=== PATIENT | male | born 1990 | race Two or more races ===

== ENCOUNTER 2019-06-06 00:44 | Inpatient (IN) | payer MEDICAID ==
[~2019-06-06] VITALS: Ht 170.2 cm; Wt 69.8 kg
[2019-06-06] VITALS (18 sets, daily range): BP systolic 88–144; BP diastolic 50–91
[2019-06-06] MEDS ORDERED: ACTIVATED CHARCOAL 50 GM/240 ML SOL ONE (00:49)
[2019-06-06 01:09] LABS: Sodium 137 mmol/L (136-145)
[2019-06-06 01:10] LABS: Alanine Aminotransferase 40 U/L (16-61); Albumin 3.6 g/dL (3.4-5.0); Alkaline Phosphatase 83 U/L (45-117); Anion Gap 9 (5-15); Aspartate Aminotransferase 38 U/L (15-37); Bilirubin, Total 0.5 mg/dL (0.2-1.0); Blood Urea Nitrogen 19 mg/dL (7-18); Calcium 8.2 mg/dL (8.5-10.1); Carbon Dioxide 26 mmol/L (21-32); Chloride 102 mmol/L (98-107); GFR African American 120 mL/min; GFR Non-African American 99 mL/min; Glucose 109 mg/dL (74-106); Magnesium 2.6 mg/dL (1.6-2.6); Potassium 3.6 mmol/L (3.5-5.1)
[2019-06-06 01:11] LABS: Blood Alcohol < 3.0 mg/dL (0-5)
[2019-06-06 01:38] LABS: Basophils # (auto) 0.7 uL; Eosinophils # (auto) 0.4 uL; Eosinophils % (auto) 4.1 % (0.0-7.0); Hematocrit 39.3 % (41.0-53.0); Hemoglobin 13.7 g/dL (13.5-17.5); Lymphocytes # (auto) 1.5 uL; Lymphocytes % (auto) 16.7 % (10.0-50.0); Mean Corpuscular Hemoglobin 31.5 pg (28.0-32.0); Mean Corpuscular Hgb Conc. 34.9 g/dL (32.0-36.0); Mean Corpuscular Volume 90.3 fL (80.0-100.0); Monocytes # (auto) 0.2 uL; Neutrophils # (auto) 6.1 uL; Neutrophils % (auto) 69.2 % (37.0-80.0); Nucleated Red Blood Cells % 0.3 %; Platelet Count (auto) 301 10^3/uL (140-450); Red Blood Cells 4.35 10^6/uL (4.5-5.90); Red Cell Distribution Width 14.1 % (11.8-14.3); White Blood Cell 8.8 10^3/uL (4.4-10.8)
[2019-06-06 01:54] LABS: Acetaminophen < 2.0 ug/mL (10-30); Salicylate < 1.7 mg/dL (2.8-20.0)
[2019-06-06 02:40] LABS: Urine Bacteria NONE SEEN /hpf (None Seen); Urine Blood Negative /uL (Negative); Urine Mucus FEW (None Seen); Urine Specific Gravity 1.021 (1.001-1.035); Urine WBC <1 /hpf (0 - 3)
[2019-06-06 03:20] LABS: Alcohol, Urine < 3.0 mg/dL (0-5); Amphetamine Screen, Urine POSITIVE (NEGATIVE); Barbiturate Scree,Urine NEGATIVE (NEGATIVE); Benzodiazephine Screen, Urine NEGATIVE (NEGATIVE); Cannabinoid Screen, Urine NEGATIVE (NEGATIVE); Cocaine Screen, Urine NEGATIVE (NEGATIVE); Opiate Scree,Urine NEGATIVE (NEGATIVE); Phencyclidine Screen, Urine NEGATIVE (NEGATIVE)
[2019-06-06] MEDS ORDERED: MIDAZOLAM DRIP 50 mg/50mL 50 ML IV SCH (07:15)
[2019-06-06] MEDS ORDERED: LORazepam 2MG/ML-1ML VIAL IV PRN (07:15)
[2019-06-06] MEDS ORDERED: ETOMIDATE (2MG/ML) 20ML VIAL IV ONE ×2 (07:15→07:45)
[2019-06-06] MEDS ORDERED: SUCCINYLCHOLINE CHLORIDE 20 MG/ML 10ML VIAL IV ONE ×2 (07:15→07:45)
[2019-06-06] MEDS ORDERED: ACETAMINOPHEN 500 MG TAB PO PRN (07:15)
[2019-06-06] MEDS ORDERED: MIDAZOLAM DRIP 50 mg/50mL 50 ML IV ONE (07:16)
[2019-06-06] MEDS ORDERED: PROPOFOL 100 ML IV SCH (07:36)
[2019-06-06] MEDS: MIDAZOLAM DRIP 50 mg/50mL 50 ML IV SCH ×2 (07:36→22:37)
[2019-06-06] MEDS ORDERED: PROPOFOL 100 ML IV ONE (07:44)
[2019-06-06] MEDS: NOREPINEPHRINE 8 MG/250ML KIT 250 ML IV SCH (07:45)
[2019-06-06] MEDS ORDERED: PIPERACILLIN-TAZOB 3.375GM 100 ML IV ONE (07:45)
[2019-06-06] MEDS: PROPOFOL 100 ML IV SCH ×2 (08:10→22:38)
[2019-06-06] MEDS: SODIUM CHLORIDE 0.9% 1,000 ML IV SCH ×2 (08:21→15:28)
[2019-06-06] MEDS ORDERED: HYDR50TA32 PO (09:45)
[2019-06-06] MEDS ORDERED: EMTRTAB7 PO (09:46)
[2019-06-06] MEDS ORDERED: OLAN20TA13 PO (09:46)
[2019-06-06] MEDS ORDERED: VENL75CA3 PO (09:46)
[2019-06-06] MEDS ORDERED: LISD70CA PO (09:46)
[2019-06-06] MEDS ORDERED: SILD50TA42 PO (09:47)
[2019-06-06] MEDS: IPRATROPIUM BROM 0.5 MG/2.5ML INH SOL NEB SCH ×4 (10:00→22:00)
[2019-06-06] MEDS ORDERED: FAMOTIDINE (10MG/ML) 2ML VL IV SCH (10:00)
[2019-06-06] MEDS: ALBUTEROL SULF 2.5 MG/0.5ML(0.5%) NEB SOLN NEB SCH ×4 (10:00→22:00)
[2019-06-06] MEDS: ENOXAPARIN SOD 40 MG/0.4 ML SYRINGE SC SCH (10:29)
[2019-06-06] MEDS ORDERED: ACETAMINOPHEN 650 MG RECT SUPP PR ONE (11:00)
[2019-06-06] MEDS: PIPERACILLIN-TAZOB 3.375GM 100 ML IV SCH ×3 (12:00→23:43)
[2019-06-06 15:04] LABS: Potassium 3.6 mmol/L (3.5-5.1)
[2019-06-06 15:07] LABS: BUN/Creatinine Ratio 13.4; Bilirubin, Total 1.4 mg/dL (0.2-1.0); Total Protein 6.3 g/dL (6.4-8.2)
[2019-06-06] MEDS ORDERED: VANCOMYCIN PER PHARMACY 0 MG IV SCH (16:00)
[2019-06-06] MEDS: SUCRALFATE 1 GM/10 ML ORAL SUSP GT SCH ×2 (17:13→22:42)
[2019-06-06] MEDS: VANCOMYCIN 1,250 MG in D5W 5% 250 ML IV SCH (17:41)
[2019-06-06 18:02] LABS: Basophils # (auto) 0 uL; Basophils % (auto) 0.1 % (0.0-2.0); Eosinophils # (auto) 0 uL; Hemoglobin 12.6 g/dL (13.5-17.5); Lymphocytes # (auto) 0.9 uL; Lymphocytes % (auto) 6.5 % (10.0-50.0); Mean Corpuscular Hemoglobin 31.3 pg (28.0-32.0); Mean Corpuscular Volume 91.9 fL (80.0-100.0); Monocytes # (auto) 0.8 uL; Monocytes % (auto) 5.7 % (0.0-12.0); Neutrophils # (auto) 12.3 uL; Neutrophils % (auto) 87.7 % (37.0-80.0); Platelet Count (auto) 249 10^3/uL (140-450); Red Blood Cells 4.02 10^6/uL (4.5-5.90); Red Cell Distribution Width 14.5 % (11.8-14.3)
[2019-06-06 18:25] LABS: INR 1.01 (0.9-1.15); Partial Thromboplastin Time 28.1 sec (23.64-32.05)
[2019-06-06] MEDS: PANTOPRAZOLE 40 MG/10 ML VIAL INJ IV SCH (22:41)
[2019-06-06 23:04] LABS: Hematocrit 37.4 % (41.0-53.0); Hemoglobin 12.5 g/dL (13.5-17.5)
[2019-06-07] VITALS (103 sets, daily range): BP systolic 95–155; BP diastolic 51–101
[2019-06-07] MEDS: IPRATROPIUM BROM 0.5 MG/2.5ML INH SOL NEB SCH ×6 (02:08→22:26)
[2019-06-07] MEDS: ALBUTEROL SULF 2.5 MG/0.5ML(0.5%) NEB SOLN NEB SCH ×6 (02:08→22:27)
[2019-06-07] MEDS: MIDAZOLAM DRIP 50 mg/50mL 50 ML IV SCH ×5 (02:43→23:49)
[2019-06-07] MEDS: SODIUM CHLORIDE 0.9% 1,000 ML IV SCH ×3 (03:20→23:15)
[2019-06-07] MEDS: PROPOFOL 100 ML IV SCH ×3 (05:07→18:52)
[2019-06-07] MEDS: VANCOMYCIN 1,250 MG in D5W 5% 250 ML IV SCH ×2 (05:07→17:15)
--- NOTE | 2019-06-07 05:25 | NUR ---
CALL PLACED TO DR JENNINGS RE: CT CHEST REPORT
[2019-06-07] MEDS: PIPERACILLIN-TAZOB 3.375GM 100 ML IV SCH ×4 (06:00→23:48)
[2019-06-07 06:14] LABS: Basophils # (auto) 0.1 uL; Basophils % (auto) 0.5 % (0.0-2.0); Eosinophils # (auto) 0 uL; Eosinophils % (auto) 0.1 % (0.0-7.0); Hematocrit 36.4 % (41.0-53.0); Hemoglobin 12.4 g/dL (13.5-17.5); Lymphocytes # (auto) 1.5 uL; Lymphocytes % (auto) 10.6 % (10.0-50.0); Mean Corpuscular Hemoglobin 31.3 pg (28.0-32.0); Mean Corpuscular Volume 92.1 fL (80.0-100.0); Monocytes # (auto) 0.5 uL; Monocytes % (auto) 3.9 % (0.0-12.0); Neutrophils # (auto) 11.9 uL; Neutrophils % (auto) 84.9 % (37.0-80.0); Platelet Count (auto) 222 10^3/uL (140-450); Red Blood Cells 3.95 10^6/uL (4.5-5.90); Red Cell Distribution Width 14.8 % (11.8-14.3); White Blood Cell 14.1 10^3/uL (4.4-10.8)
[2019-06-07] MEDS: SUCRALFATE 1 GM/10 ML ORAL SUSP GT SCH ×2 (06:23→11:30)
[2019-06-07 06:34] LABS: Albumin 2.8 g/dL (3.4-5.0); BUN/Creatinine Ratio 10.3; Calcium 7.8 mg/dL (8.5-10.1); Potassium 3.5 mmol/L (3.5-5.1)
[2019-06-07 06:37] LABS: Bilirubin, Total 0.8 mg/dL (0.2-1.0); Total Protein 6.5 g/dL (6.4-8.2)
[2019-06-07] MEDS: NOREPINEPHRINE 8 MG/250ML KIT 250 ML IV SCH (07:45)
--- NOTE | 2019-06-07 09:00 | NUR ---
Will decrease sedation this shift to increase response to painful stimuli. Addendum: 06/07/19 at 1019 by Marilynn Ellis RN Amended: Links added.
--- NOTE | 2019-06-07 09:15 | NUR ---
Raymond from Poison Control calls - updated o patient condition.
--- NOTE | 2019-06-07 10:00 | NUR ---
WOUND CARE NOTE: IN TO SEE PATIENT AT THIS TIME FOR SKIN INTEGRITY MONITORING. PATIENT ADMITTED TO [facility] WITH DIAGNOSIS OF OVERDOSE. HE IS RESTING ON HOSPITAL BED. CURRENT BROOK SCORE IS 10. PATIENT IS INTUBATED, SEDATED. HE IS WOUND FREE AT THIS TIME. SKIN/WOUND CARE PLAN IMPLEMENTED. RECOMMEND: FREQUENT TURN SCHEDULE Q 2 HOURS, PRN CONDITION PERMITS, WITH PRESSURE REDISTRIBUTION USING PILLOWS/WEDGES, BID/PRN APPLICATION WITH MOISTURE BARRIER CREAM, OPTIFOAM GENTLE SACRAL DRESSING PREVENTATIVE, SKIN/WOUND CARE PLAN, DIETARY CONSULT FOR LOW BROOK, CONTINUED MONITORING BY WOUND CARE TEAM.
[2019-06-07] MEDS: PANTOPRAZOLE 40 MG/10 ML VIAL INJ IV SCH ×2 (11:44→21:52)
[2019-06-07] MEDS: ENOXAPARIN SOD 40 MG/0.4 ML SYRINGE SC SCH (11:44)
[2019-06-07] MEDS ORDERED: diphenhdrAMINE HCL 50 MG/1 ML VL ONE (12:45)
[2019-06-07] MEDS ORDERED: MIDAZOLAM HCL 5 MG/ML-1ML VIAL ONE (12:45)
[2019-06-07] MEDS ORDERED: SODIUM CHLORIDE LOCK 0 ML ONE ×2 (12:45→13:44)
[2019-06-07] MEDS ORDERED: NALOXONE HCL 0.4 MG/ML VIAL ONE (12:45)
[2019-06-07] MEDS ORDERED: FLUMAZENIL 0.1 MG/ML INJ 10ML MDV IV ONE (12:45)
[2019-06-07] MEDS ORDERED: fentaNYL CITRATE 100 MCG/2 ML VL ONE (12:45)
--- NOTE | 2019-06-07 13:00 | NUR ---
DR VALDES AT BEDSIDE FOR EGD.
[2019-06-07] MEDS ORDERED: LIDOCAINE HCL 2% TOP JELLY 5ML TOP ONE (13:44)
[2019-06-07] MEDS ORDERED: LIDOCAINE 2%HCL (LOCAL ANESTH.) INJ 20ML MDV ONE (13:44)
[2019-06-07] MEDS ORDERED: EPINEPHrine HCL 1 MG/1 ML AMP ONE (13:44)
[2019-06-07] MEDS ORDERED: ACETYLCYSTEINE 10 %(100MG/ML) SOL 4ML IN ONE (14:00)
--- NOTE | 2019-06-07 14:30 | NUR ---
DR JENNINGS AT BEDSIDE FOR BRONCHOSCOPY.
--- NOTE | 2019-06-07 15:20 | NUR ---
RT Transport Note: Patient transported to {CT} with RN {JACKIE Horton}. Patient transported to and from procedure on ventilator with previous ordered settings. Patient on monitor worker with alarms set and audible, ambu-bag/mask connected to 02 tank. Patient returned to room with no adverse reaction noted. Transport completed without incident.
[2019-06-07] MEDS ORDERED: POTASSIUM CHL 20MEQ/100ML 100 ML IV ONE (16:15)
--- NOTE | 2019-06-07 18:16 | NUR ---
DR JENNINGS RETURNS CALL - CT REPORT GIVEN, NO NEW ORDERS RECEIVED.
--- NOTE | 2019-06-07 19:40 | NUR ---
REPORT CALLED TO GINA SABILLON IN ICU.
--- NOTE | 2019-06-07 19:40 | NUR ---
PT VALUABLES IN SAFE OTHER BELONGINGS W/ PT: 2 PT BELONGINGS BAGS AND 1 SUITCASE.
--- NOTE | 2019-06-07 20:00 | NUR ---
pt to unit assumed care of pt intubated and sedated transferred from er. pupils 2 and reactive to light. responds to deep tactile stimuli, otherwise non responsive. sedated on propofol and versed (see iv spreadsheet). sr on compliance monitor. respirations even and unlabored, tolerating ventilator. RIJ 3l catheter running sedation and ns at 100mls/hr. LFA 18g SL, LAC 18g SL, patent, asymptomatic, intact. ogt in place and clamped. bowel sounds present, flatus present, last bm unknown. mendez catheter patent and draining clear yellow urine via gravity. skin intact, no apparent problem. optifoam gentle dressing placed preventatively to sacral area. all bony prominences off loaded with pillows. no indication of pain observed. belongings at bedside. suitcase, 2 bags of journal like books. bed in lowest locked position, in full view of nurses station. vss. will continue to monitor
[2019-06-08] VITALS (85 sets, daily range): BP systolic 107–148; BP diastolic 53–99
--- NOTE | 2019-06-08 01:00 | NUR ---
full bed bath and linen change done at this time skin assessed for any issues, no apparent problem. piercing in between scrotum and anus, cdi. tolerated well. vss. will continue to monitor.
[2019-06-08] MEDS: IPRATROPIUM BROM 0.5 MG/2.5ML INH SOL NEB SCH ×6 (02:48→22:00)
[2019-06-08] MEDS: ALBUTEROL SULF 2.5 MG/0.5ML(0.5%) NEB SOLN NEB SCH ×6 (02:48→22:00)
[2019-06-08] MEDS: MIDAZOLAM DRIP 50 mg/50mL 50 ML IV SCH ×5 (03:08→23:27)
[2019-06-08 04:15] LABS: Basophils # (auto) 0.1 uL; Basophils % (auto) 0.4 % (0.0-2.0); Eosinophils # (auto) 0 uL; Eosinophils % (auto) 0.1 % (0.0-7.0); Hemoglobin 11.6 g/dL (13.5-17.5); Lymphocytes # (auto) 1.5 uL; Lymphocytes % (auto) 12.2 % (10.0-50.0); Mean Corpuscular Hemoglobin 31.3 pg (28.0-32.0); Mean Corpuscular Hgb Conc. 34.1 g/dL (32.0-36.0); Mean Corpuscular Volume 91.7 fL (80.0-100.0); Monocytes # (auto) 0.9 uL; Neutrophils # (auto) 9.8 uL; Neutrophils % (auto) 80.3 % (37.0-80.0); Platelet Count (auto) 252 10^3/uL (140-450); Red Blood Cells 3.71 10^6/uL (4.5-5.90); Red Cell Distribution Width 14.7 % (11.8-14.3); White Blood Cell 12.2 10^3/uL (4.4-10.8)
[2019-06-08 04:27] LABS: BUN/Creatinine Ratio 10.8; Calcium 7.9 mg/dL (8.5-10.1); Potassium 3.7 mmol/L (3.5-5.1)
[2019-06-08] MEDS: VANCOMYCIN 1,250 MG in D5W 5% 250 ML IV SCH ×3 (05:12→20:27)
[2019-06-08] MEDS: PIPERACILLIN-TAZOB 3.375GM 100 ML IV SCH ×3 (05:42→18:00)
--- NOTE | 2019-06-08 06:31 | NUR ---
Respiratory note: RECEIVED PATIENT ON V19 ESPRIT VENT ORALLY INTUBATED WITH AN 8.0 ETT SECURED VIA JAD AT THE 28CM MARKING AT THE LIP, AND MECHANICALLY VENTILATED WITH THE CHARTED SETTINGS. SPO2 100%, LUNG SOUNDS CLEAR T/O, NO SECRETIONS WHEN SUCTIONED. SKIN IS WARM/DRY TO THE TOUCH AND IS SHOWING A SMALL ABRASION ON THE LEFT SIDE OF THE UPPER LIP. THERE IS AN OGT IN PLACE AND SECURED TO THE ETT, THERE IS A TRIPLE LUMEN CENTRAL LINE PLACED IN THE RIGHT IJ. PITTING EDEMA NOTED IN BILATERAL UPPER EXTREMITIES, NO EDEMA NOTED IN LOWER EXTREMITIES. NO NEW AM CXR TO ASSESS. PATIENT IS UNRESPONSIVE TO BOTH VERBAL/TACTILE STIMULI AND IS SEDATED ON VERSED AND PROPOFOL DRIPS. HE IS RESTING COMFORTABLY AND TOLERATING VENT WELL, NO CHANGES MADE. VENT PLUGGED INTO RED OUTLET AND ALL ALARMS ARE SET AND AUDIBLE. WILL CONTINUE TO ASSESS PATIENT WELL VENTILATOR FUNCTION. MED-Urbful RUN INLINE.
[2019-06-08] MEDS: PROPOFOL 100 ML IV SCH ×3 (06:46→19:27)
[2019-06-08] MEDS: NOREPINEPHRINE 8 MG/250ML KIT 250 ML IV SCH (07:45)
--- NOTE | 2019-06-08 09:00 | NUR ---
PATIENT WITH VERY HYPERACTIVE COUGH/GAG REFLEX -KATHIERIUNA INCREASED- SEE IV DAIHEET. Addendum: 06/08/19 at 1054 by Marilynn Ellis RN Amended: Links added.
--- NOTE | 2019-06-08 09:50 | NUR ---
BENJI FROM POISON CONTROL PHONES - GIVEN UPDATE - REQUESTS HEPATIC PANEL TO BE DRAWN - CONTACTED AND ORDER PLACED.
[2019-06-08 10:14] LABS: Albumin 2.4 g/dL (3.4-5.0)
[2019-06-08 10:17] LABS: Bilirubin, Direct 0.2 mg/dL (0-0.2); Bilirubin, Total 0.7 mg/dL (0.2-1.0); Total Protein 6.2 g/dL (6.4-8.2)
--- NOTE | 2019-06-08 11:09 | NUR ---
NUTRITION CONSULT/ASSESSMENT NOTES Please refer to link notes of nutrition screen form filed under the intervention section of the plan of care for further details. Est. Needs: 1550 kcal to 1950 kcal (20-25 kcal/kgBW), 77 gms to 93 gms pro (1.0-1.2 gms/kgBW). Will continue to monitor pertinent labs and reassess nutrient need prn Thank you for this consult. Addendum: 06/08/19 at [address] Amended: Links added.
[2019-06-08] MEDS: PANTOPRAZOLE 40 MG/10 ML VIAL INJ IV SCH ×2 (12:19→21:37)
[2019-06-08] MEDS: ENOXAPARIN SOD 40 MG/0.4 ML SYRINGE SC SCH (12:20)
--- NOTE | 2019-06-08 12:30 | NUR ---
DR KAPADIA VISITS AND EXAMINES PATIENT - ORDERS RECEIVED.
[2019-06-08] MEDS: SODIUM CHLORIDE 0.9% 1,000 ML IV SCH (12:33)
--- NOTE | 2019-06-08 14:00 | NUR ---
DR JENNINGS VISITS AND EXAMINES PATIENT - NO NEW ORDERS RECEIVED.
--- NOTE | 2019-06-08 14:10 | NUR ---
Assessment Pt is a 28 yr old intubated male in ICU. Pt had no family bedside. Pt's nurse stated he was brought in to the ER when [facility] staff saw him taking multiple pills. Pt was combative initially and is now on a ventilator. 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 Pt's roommate Dustin Patel was his contact at [phone]. Dustin stated that pt was ambulatory and functioned independently prior to admit. Pt's uses in home 02. Jorge stated that pt sees a specialist for HIV, has CHF, COPD and has a history of catching pneumonia and might possibly have lung cancer and is still in the testing process for it. Pt's needs will be assessed closer to d/c. Addendum: 06/08/19 at 1420 by CARLITOS CASSIDY SS Amended: Links added.
--- NOTE | 2019-06-08 19:38 | NUR ---
ADMITTED AFTER A WITNESS SAW THE PATIENT TAKING MULTIPLE PILLS.. INTUBATED IN ER. THE TYPE OF PILLS IS UNKNOWN. RETESTING FOR HIV AT 1999. ETT TO VENTILATOR. NPO. VERAS IN PLACE. RIJ TLC. SEDATION: DIPRIVAN AND VERSED. SOCIAL WORK INVOLVED. PATIENT IS HERE ON A VISA FROM THE [facility]. PENDING CD4 AND MORE TESTS THAT HAVE BEEN SENT OUT. TOXICOLOGY : POSITIVE FOR AMPHETAMINES. POISON CONTROL INVOLVED. MEDS TO PHARMACY.
--- NOTE | 2019-06-08 20:00 | NUR ---
HYPOACTIVE COUGH. NO BLINK. PUPILS EQUAL AND SLUGGISH. NO FEVER. LARGE AMOUNT OF CLEAR ORAL SECRETIONS. LUNGS CLEAR. NOTHING SUCTIONED FROM THE ETT. ABDOMEN SOFT. NPO. PIERCING POST SCROTUM. RIJ TRIPLE LUMEN CATHETER WITH CLEAN, DRY DRESSING. HIV TEST DONE. ALL PULSES PALPABLE. ALL EXTREMITIES ARE WARM. ON RIGHT SIDE. NO PERIPHERAL EDEMA. OGT TO LIS. GREEN LIQUID IN TUBING.
--- NOTE | 2019-06-08 21:50 | NUR ---
OPENED EYES, FOCUSED ON ME, SHOOK HIS HEAD YES AND MOVED HIS RIGHT ARM UP TOWARDS HIS ETT . INCREASED THE SEDATION SLIGHTLY.
[2019-06-09] VITALS (42 sets, daily range): BP systolic 105–151; BP diastolic 49–93
--- NOTE | 2019-06-09 | NUR ---
REPOSITIONED. SEDATION HAS HIM QUIET ENOUGH AND YET HE OCCASIONALLY MOVES HIS EXTREMITIES AND OPENS HIS EYES. LUNGS CLEAR. NOTHING SUCTIONED FROM THE ETT. ORAL CARE DONE. ABDOMEN FLAT. NGT NOT PUTTING OUT MUCH. COLOR IS GREEN. PERIPHERAL PULSES PALPABLE. ALL EXTREMITIES WARM. TOOK HIS PREVIOUS TEMP DOWN WITH AN ICE BAG TO THE BACK OF HIS NECK. SCDS ON.
[2019-06-09] MEDS: PIPERACILLIN-TAZOB 3.375GM 100 ML IV SCH ×4 (00:28→18:33)
[2019-06-09] MEDS: PROPOFOL 100 ML IV SCH ×2 (00:33→05:56)
[2019-06-09] MEDS: IPRATROPIUM BROM 0.5 MG/2.5ML INH SOL NEB SCH ×7 (02:08→21:56)
[2019-06-09] MEDS: ALBUTEROL SULF 2.5 MG/0.5ML(0.5%) NEB SOLN NEB SCH ×7 (02:08→21:56)
[2019-06-09] MEDS: SODIUM CHLORIDE 0.9% 1,000 ML IV SCH ×3 (02:15→14:54)
--- NOTE | 2019-06-09 03:28 | NUR ---
AM LABS DRAWN
[2019-06-09 04:01] LABS: Basophils # (auto) 0 uL; Basophils % (auto) 0.6 % (0.0-2.0); Eosinophils # (auto) 0.1 uL; Eosinophils % (auto) 1.1 % (0.0-7.0); Hematocrit 32.5 % (41.0-53.0); Hemoglobin 11.2 g/dL (13.5-17.5); Lymphocytes # (auto) 1.4 uL; Lymphocytes % (auto) 21.8 % (10.0-50.0); Mean Corpuscular Hemoglobin 31.8 pg (28.0-32.0); Mean Corpuscular Hgb Conc. 34.4 g/dL (32.0-36.0); Mean Corpuscular Volume 92.3 fL (80.0-100.0); Monocytes # (auto) 0.6 uL; Monocytes % (auto) 9.3 % (0.0-12.0); Neutrophils # (auto) 4.4 uL; Neutrophils % (auto) 67.2 % (37.0-80.0); Nucleated Red Blood Cells % 0.1 %; Platelet Count (auto) 279 10^3/uL (140-450); Red Blood Cells 3.52 10^6/uL (4.5-5.90); Red Cell Distribution Width 14.7 % (11.8-14.3); White Blood Cell 6.6 10^3/uL (4.4-10.8)
[2019-06-09 04:20] LABS: BUN/Creatinine Ratio 11.1; Calcium 8.1 mg/dL (8.5-10.1); Potassium 3.6 mmol/L (3.5-5.1)
[2019-06-09] MEDS: VANCOMYCIN 1,250 MG in D5W 5% 250 ML IV SCH ×3 (04:36→21:05)
--- NOTE | 2019-06-09 04:36 | NUR ---
vancomycin level within range
--- NOTE | 2019-06-09 06:13 | NUR ---
FULL LINEN CHANGE. NSR WITHOUT ECTOPY. LUNGS CLEAR. NONPRODUCTIVE. VERAS DRAINING A LIGHT YELLOW LIQUID.
[2019-06-09] MEDS ORDERED: DexMEDEtomidine 400 MCG in D5W 5% 96 ML IV SCH (09:03)
--- NOTE | 2019-06-09 09:09 | NUR ---
DR JENNINGS PHONES - UPDATED ON PATIENT RESP ASSESSMENT - ORDERS RECEIVED.
--- NOTE | 2019-06-09 09:49 | NUR ---
PRECEDEX BEGUN WITH SEDATION WEANING STARTED. BILAT HAND MITTS APPLIED.
[2019-06-09] MEDS: PANTOPRAZOLE 40 MG/10 ML VIAL INJ IV SCH ×2 (10:00→21:05)
[2019-06-09] MEDS: ENOXAPARIN SOD 40 MG/0.4 ML SYRINGE SC SCH (10:00)
[2019-06-09] MEDS: MIDAZOLAM DRIP 50 mg/50mL 50 ML IV SCH (10:17)
--- NOTE | 2019-06-09 11:40 | NUR ---
DR JENNINGS NOTIFIED OF WEANING PARAMETER VALUES AND CPAP ABG RESULTS - ORDERS RECEIVED, RT NOTIFIED.
[2019-06-09] MEDS ORDERED: EPINEPHrine HCL 0.5 ML NEB NEB ONE (11:45)
--- NOTE | 2019-06-09 11:45 | NUR ---
Respiratory note: PT ON CPAP FOR 30 MIN. NIF -46, LEAK 600, RSBI 56, VC 950. DR. JENNINGS NOTIFIED OF PARAMETERS AND ABG RESULTS. DR. JENNINGS OK'D TO EXTUBATE. PT EXTUBATED AT 1145 AND PUT ON COOL MIST.
--- NOTE | 2019-06-09 12:00 | NUR ---
SITTER AT BEDSIDE POST EXTUBATION.
--- NOTE | 2019-06-09 14:15 | NUR ---
Patient taking ice chips without dysphagia noted.
--- NOTE | 2019-06-09 14:50 | NUR ---
DR JENNINGS VISITS ET EXAMINES PATIENT - ORDERS RECEIVED.
--- NOTE | 2019-06-09 16:15 | NUR ---
Patient taking ice chips without dysphagia noted Addendum: 06/09/19 at 1731 by Marilynn Ellsi RN error - Patient taking clear liq without difficulty.
--- NOTE | 2019-06-09 18:12 | NUR ---
PT REFUSED MED NEB TX AT THIS TIME. SPO2 98% ON RA, HR 96, RR 12. PT DENIES ANY RESPIRATORY DISTRESS. NO TX INDICATED AT THIS TIME. WILL CONTINUE WITH NEXT SCHEDULED TX.
--- NOTE | 2019-06-09 20:35 | NUR ---
Patient safely transported to new room. Patient vital signs within normal ranges per hospital policy and standard. Patient remains aloc x 3-4 with frequent reorientation. Unable to determine baseline. Patient remains insistent on leaving the hospital as soon as he can. POC explained to patient and patient demonstrates understanding. Patient has all belongings per patient request and upon his approval he has all belongings needed at bedside. Patient notified that other belongings are in the safe alongside his medications and he demonstrates understanding. Full report provided to accepting vertica architect and Student RN including full poc, pertinent labs, and patient requests. Patient safely in room with sitter with call light within reach and patient bed locked side rails up x 3 for safety, and on low. Signing off.
--- NOTE | 2019-06-09 20:40 | NUR ---
Patient received from ICU. Received report from PLANT MECHANIC Benji. Patient is alert and oriented x4. Patient has no complaints of SOB or pain. Sitter at bedside.
--- NOTE | 2019-06-09 21:57 | NUR ---
PT STILL REFUSING MED NEB TX AT THIS TIME. SPO2 93% ON RA, HR 88. PT DENIES ANY RESPIRATORY DISTRESS. NO SHORTNESS OF BREATH NOTED. WILL CONTINUE WITH NEXT SCHEDULED TX IF ACCEPTED.
[2019-06-10] MEDS: PIPERACILLIN-TAZOB 3.375GM 100 ML IV SCH ×2 (00:03→06:59)
[2019-06-10] MEDS: IPRATROPIUM BROM 0.5 MG/2.5ML INH SOL NEB SCH ×6 (02:00→22:00)
[2019-06-10] MEDS: ALBUTEROL SULF 2.5 MG/0.5ML(0.5%) NEB SOLN NEB SCH ×6 (02:00→22:00)
--- NOTE | 2019-06-10 02:02 | NUR ---
PT STILL REFUSING MED NEB TX. PT DENIES ANY RESPIRATORY DISTRESS. SITTER AT BEDSIDE. WILL CONTINUE WITH NEXT SCHEDULED TX IF PT ACCEPTS.
[2019-06-10] MEDS: SODIUM CHLORIDE 0.9% 1,000 ML IV SCH (02:14)
[2019-06-10] MEDS: VANCOMYCIN 1,250 MG in D5W 5% 250 ML IV SCH (05:09)
[2019-06-10 06:36] LABS: Basophils # (auto) 0 uL; Eosinophils # (auto) 0.1 uL; Eosinophils % (auto) 1.3 % (0.0-7.0); Hematocrit 35.8 % (41.0-53.0); Hemoglobin 12.2 g/dL (13.5-17.5); Lymphocytes # (auto) 1.9 uL; Lymphocytes % (auto) 37.9 % (10.0-50.0); Mean Corpuscular Hemoglobin 31.2 pg (28.0-32.0); Mean Corpuscular Hgb Conc. 34.1 g/dL (32.0-36.0); Mean Corpuscular Volume 91.6 fL (80.0-100.0); Monocytes # (auto) 0.6 uL; Monocytes % (auto) 12.3 % (0.0-12.0); Neutrophils # (auto) 2.4 uL; Neutrophils % (auto) 47.5 % (37.0-80.0); Nucleated Red Blood Cells % 0.1 %; Platelet Count (auto) 365 10^3/uL (140-450); Red Cell Distribution Width 14.4 % (11.8-14.3)
--- NOTE | 2019-06-10 07:05 | NUR ---
Closing note patient resting in bed with even and unlabored respirations, no s/s of distress. sitter at bedside. Endorsed care to day shift RN.
[2019-06-10 07:07] LABS: BUN/Creatinine Ratio 13.9; Calcium 8.5 mg/dL (8.5-10.1); Potassium 3.4 mmol/L (3.5-5.1)
[2019-06-10 09:00] VITALS: BP 121/73
[2019-06-10] MEDS: PANTOPRAZOLE 40 MG/10 ML VIAL INJ IV SCH ×2 (09:47→21:46)
[2019-06-10] MEDS: ENOXAPARIN SOD 40 MG/0.4 ML SYRINGE SC SCH (09:47)
--- NOTE | 2019-06-10 11:25 | NUR ---
DR. MARTINEZ IN TO EVALUATE PT. MINIMAL VERBAL COOPERATION WITH QUESTIONS. WILL CONTINUE TO MONITOR.
[2019-06-10] MEDS ORDERED: POTASSIUM CHL 20 Meq TABLET PO ONE (11:45)
[2019-06-10 13:00] VITALS: BP 145/94
--- NOTE | 2019-06-10 13:46 | NUR ---
TLC DC'd, ASEPTIC TECHNIQUE APPLIED. NO ACTIVE BLEEDING. CATHETER INTACT, SUTURES INTACT ON REMOVAL. VERAS CATHETER DC'D, CATHETER INTACT.
--- NOTE | 2019-06-10 14:39 | NUR ---
Nutrition Follow-up Notes Wt.: 74.1 kg as of yesterday. Pt's s/p Bronchoscopy with Tracheal washing (06/07/19), successfully extubated yesterday, sitting up on bed, no signs of distress, however reluctant to talk, no immediate family member at bedside except for sitter during rounds this morning. Pt's currently on Regular diet with inadequate PO intake aeb 50% consumed meal since last night. Encouraged to increase food intake through small frequent meals as tolerated. Est. Needs: 1550 kcal to 1950 kcal (20-25 kcal/kgBW), 77 gms to 93 gms pro (1.0-1.2 gms/kgBW). Will continue to monitor pertinent labs and reassess nutrient need prn Labs: Gluc 125 H, Cl 109 H, K 3.4 L; AST 46 H, Tpro 6.2 L, Alb 2.4 L Skin: Markell scale 21, low risk, skin intact per arc and gas welder. GI: Pt's no bowel activity since 06/06/19 per arc and gas welder. PES: Resolved: Increased nutrient needs r/t acute/chronic medical condition aeb intubated,sedated. mod hypoalbuminemia,NPO. Altered nutrition related lab values r/t current/chronic medical condition aeb elev. AST, hypocalcemia and mod hypoalbuminemia Will continue to monitor PO intake, skin status, pertinent labs and weight trend. F/u in 3 to 5 days. Rec.: 1.) If Albumin continues trending down, consider Prostat 1 pkt BID. 2.) Continue close supervision during meals. 3.) Refer pt to CDE/RD for further nutrition education and weight monitoring upon discharge. 4.) Continue current plan of care.
--- NOTE | 2019-06-10 17:00 | NUR ---
Patient refused 1700 vitals.-EW
--- NOTE | 2019-06-10 19:00 | NUR ---
Opening Shift Note Assumed care of patient, awake and alert. No S/S of distress/SOB or pain. Instructed on POC and to call for assist PRN, will continue to monitor for changes Q1hr and PRN.
--- NOTE | 2019-06-10 19:15 | NUR ---
AT BEDSIDE FOR SCHEDULED TX. PT WOULD NOT ANSER ANY QUESTIONS AND WOULD ONLY STARE AT THERAPIST. ATTEMPTED TO OBTAIN VITALS AND PT SHOOK HEAD SLOWLY NO. SITTER AT BEDSIDE. NO DISTRESS NOTED.
[2019-06-10] MEDS ORDERED: TEMAZEPAM 15 MG CAP PO ONE (21:45)
[2019-06-11] MEDS: ALBUTEROL SULF 2.5 MG/0.5ML(0.5%) NEB SOLN NEB SCH ×5 (02:00→22:00)
[2019-06-11] MEDS: IPRATROPIUM BROM 0.5 MG/2.5ML INH SOL NEB SCH ×5 (02:00→22:00)
--- NOTE | 2019-06-11 05:30 | NUR ---
Patient refused v/s @ 2200 and 0500, RN was notified
--- NOTE | 2019-06-11 06:36 | NUR ---
RT NOTE: UNABLE TO GIVE TX OR OBTAIN VITALS. PT IS STANDING IN MIDDLE OF ROOM. PT REFUSES TO RESPOND TO ANY QUESTIONS OR TO ALLOW ME TO PLACE PULSE OX ON FINGER. SITTER IS BEDSIDE. WILL CONTINUE TO MONITOR. Addendum: 06/11/19 at 0641 by MARGUERITE KRISHNA, RT RT PT IS ON ROOM ARE WITH NO SIGNS OF DISTRESS NOTED.
[2019-06-11 09:00] VITALS: BP 147/79
--- NOTE | 2019-06-11 09:06 | NUR ---
Spoke to Len at [facility] ([place], [place]) and informed him that pt needs to be on complex case management, Pt has not prior admissions for psych related issues either with [facility] or [facility]
[2019-06-11] MEDS: PANTOPRAZOLE 40 MG/10 ML VIAL INJ IV SCH ×2 (10:15→21:36)
[2019-06-11] MEDS: LEVOFLOXACIN 250 MG TAB PO SCH (10:16)
--- NOTE | 2019-06-11 11:19 | NUR ---
RT NOTE: PT REFUSED TX AGAIN. NO SIGNS OF RESPIRATORY DISTRESS NOTED. PT IS UP AND WALKING AROUND ROOM. SITTER AND RN JUST OUTSIDE OF ROOM AND AWARE OF REFUSAL. WILL CONTINUE TO MONITOR.
--- NOTE | 2019-06-11 12:00 | NUR ---
PT BECOMING AGITATED AND ANXIOUS. DR. LOMBARDI AT BEDSIDE. SECURITY. ADMINISTERED MEDICATIONS PER DRSonal ORDER. PT TOLERATED WELL. WILL CONTINUE TO MONITOR.
[2019-06-11] MEDS ORDERED: HALOPERIDOL LACTATE 5 MG/ML INJ VIAL IM PRN (12:15)
[2019-06-11] MEDS: VENLAFAXINE HCL 37.5MG TABLET PO ONE (12:15)
[2019-06-11] MEDS ORDERED: HALOPERIDOL LACTATE 5 MG/ML INJ VIAL ONE (12:16)
[2019-06-11] MEDS ORDERED: LORazepam 2MG/ML-1ML VIAL ONE (12:16)
[2019-06-11 12:58] VITALS: BP 136/73
[2019-06-11] MEDS: LORazepam 2MG/ML-1ML VIAL IV PRN (13:44)
--- NOTE | 2019-06-11 15:54 | NUR ---
assessment Patient is a 28 year old male who speaks when he wants to. Most of the time patient whispers or I have to read his lips and when I repeat back to him he nods yes that is correct or no that it is not. Patient informed me he did not try to hurt himself. Patient stated he did not take medication to hurt himself. Patient informed me he was taking his own medications. Patient informed me he goes by Kendra Herreranand the [employer]. I called the 2 phone numbers in the chart and they were for the wrong patient. I called the [facility] [employer] department and spoke to Jannet. Per Jannet patient does live at [id number] [address] [facility] [place] [address]. Jannet informed me patient lives with his sister and was reported missing on 06/03/19. Jannet also informed me that the sister reported that patient was acting funny 2 weeks prior to Halloween when she noticed he was not taking his medications. Patient walked out of the house after hanging Halloween decorations and never returned. On 06/04/19 patient was found in [place] and patient was returned home ([facility]). Per vadim sister patient is bipolar and not taking his meds. Per Jannet she cannot give me patients sisters phone number or name. Per Jannet she will send a fire management specialist out to patients house and inform family where he is at. Jannet will give family my contact information. Waiting on family to contact me now. Addendum: 06/11/19 at 1609 by Kiana ANTHONY Amended: Links added.
[2019-06-11 17:58] VITALS: BP 137/76
--- NOTE | 2019-06-11 19:30 | NUR ---
Opening Shift Note Assumed care of patient, awake and alert. No S/S of distress/SOB. Patient had taken a shower. Instructed on POC and to call for assist PRN, will continue to monitor for changes Q1hr and PRN.
--- NOTE | 2019-06-11 20:30 | NUR ---
Assessment Patient is calm and cooperative at this time. Patient is alert and oriented X 3. Patient is resting in bed and is responding appropriately to questions. Sitter at bedside.
[2019-06-11 22:00] VITALS: BP 124/64
[2019-06-12] MEDS: ALBUTEROL SULF 2.5 MG/0.5ML(0.5%) NEB SOLN NEB SCH ×6 (02:00→22:20)
[2019-06-12] MEDS: IPRATROPIUM BROM 0.5 MG/2.5ML INH SOL NEB SCH ×6 (02:00→22:20)
--- NOTE | 2019-06-12 02:45 | NUR ---
Endorsed patient to Levi RN. Patient resting, no distress noted. Sitter at bedside.
--- NOTE | 2019-06-12 02:55 | NUR ---
Opening Shift Note Received report from [facility] shift nurseBenji. Assumed care of patient. Patient awake, alert, and orientated x 3. No S/S of distress/SOB or pain. Sitter at bedside. Bed is in lowest position with side rails up x 2. Bed brakes locked and call light is with in reach. HOB is 30 degrees. Instructed on POC and to call for assist PRN, will continue to monitor for changes Q1hr and PRN.
[2019-06-12 05:00] VITALS: BP 118/68
--- NOTE | 2019-06-12 06:06 | NUR ---
PT REFUSED 0600 SCHEDULED HHN TX. PT IS ON ROOM AIR, SPO2 95%, HR 87, RR 16. NO S/S OF RESPIRATORY DISTRESS. PT AWARE TO HAVE RT PAGED IF HE CHANGES HIS MIND. RIDGE MARTINEZ AWARE OF REFUSAL.
[2019-06-12 06:26] LABS: Basophils # (auto) 0 uL; Basophils % (auto) 0.6 % (0.0-2.0); Eosinophils # (auto) 0.1 uL; Eosinophils % (auto) 1.6 % (0.0-7.0); Hematocrit 37.6 % (41.0-53.0); Hemoglobin 12.9 g/dL (13.5-17.5); Lymphocytes # (auto) 2.4 uL; Mean Corpuscular Hemoglobin 31.1 pg (28.0-32.0); Mean Corpuscular Hgb Conc. 34.3 g/dL (32.0-36.0); Mean Corpuscular Volume 90.6 fL (80.0-100.0); Monocytes # (auto) 0.7 uL; Monocytes % (auto) 11.1 % (0.0-12.0); Neutrophils % (auto) 48.7 % (37.0-80.0); Nucleated Red Blood Cells % 0.1 %; Platelet Count (auto) 434 10^3/uL (140-450); Red Blood Cells 4.15 10^6/uL (4.5-5.90); Red Cell Distribution Width 14.1 % (11.8-14.3); White Blood Cell 6.2 10^3/uL (4.4-10.8)
[2019-06-12 06:30] LABS: Albumin 2.5 g/dL (3.4-5.0); BUN/Creatinine Ratio 16.4; Calcium 8.2 mg/dL (8.5-10.1); Potassium 3.7 mmol/L (3.5-5.1)
[2019-06-12 06:33] LABS: Bilirubin, Total 0.2 mg/dL (0.2-1.0); Total Protein 6.5 g/dL (6.4-8.2)
--- NOTE | 2019-06-12 07:00 | NUR ---
OPENING SHIFT NOTE ASSUMED CARE OF THE PATIENT FROM THE KNIFE GRINDER RN. THE PATIENT IS A&OX4, NO SIGNS OR SYMPTOMS OF DISTRESS. EDUCATED THE PATIENT ON POC AND PATIENT VERBALIZED UNDERSTANDING. THE PATIENT HAS A SITTER AT BEDSIDE. THE PATIENT'S CALL LIGHT IS WITHIN REACH AND BED IS IN THE LOWEST, LOCKED POSITION. WILL ROUND HOURLY AND CONTINUE TO MONITOR.
--- NOTE | 2019-06-12 07:17 | NUR ---
closing notes endorsed care to day shift nurse, Jo.
[2019-06-12 08:52] VITALS: BP 118/68
[2019-06-12 09:00] VITALS: BP 121/70
[2019-06-12] MEDS: PANTOPRAZOLE 40 MG/10 ML VIAL INJ IV SCH ×2 (09:35→21:35)
[2019-06-12] MEDS: VENLAFAXINE HCL 37.5MG TABLET PO SCH (09:36)
[2019-06-12] MEDS: LEVOFLOXACIN 250 MG TAB PO SCH (09:37)
--- NOTE | 2019-06-12 10:07 | NUR ---
ERROR MADE ON CHARTING AT 0610. BREATHING TX NOT ADMINISTERED. WRONG PT.
[2019-06-12 13:00] VITALS: BP 131/76
--- NOTE | 2019-06-12 13:18 | NUR ---
TELE PSYCH TELE PSYCH MONITOR IS SET UP AND ORDER PLACED.
[2019-06-12 17:00] VITALS: BP 126/72
--- NOTE | 2019-06-12 19:30 | NUR ---
RN provided teaching to patient regarding his IV sites being present for more than 3 days. I recommended for new IV's to be placed due to infection prevention. Patient refused due to stating both IV's still work and did not want to be poked again when not deemed necessary.
[2019-06-12 21:53] VITALS: BP 136/75
--- NOTE | 2019-06-12 23:15 | NUR ---
I called Tele psych ([phone]), and spoke with Brielle to receive results. Results received through fax at [phone].
--- NOTE | 2019-06-13 00:26 | NUR ---
Opening Shift Note Received report from [facility] shift nurseLen. Assumed care of patient. Patient awake, alert, and orientated x 4. No S/S of distress/SOB or pain. Sitter at bedside. Bed is in lowest position with side rails up x 2. Bed brakes locked and call light is with in reach. HOB is 30 degrees. Instructed on POC and to call for assist PRN, will continue to monitor for changes Q1hr and PRN.
--- NOTE | 2019-06-13 00:30 | NUR ---
Endorsed care to Levi SABILLON.
[2019-06-13] MEDS: IPRATROPIUM BROM 0.5 MG/2.5ML INH SOL NEB SCH ×6 (02:00→22:57)
[2019-06-13] MEDS: ALBUTEROL SULF 2.5 MG/0.5ML(0.5%) NEB SOLN NEB SCH ×6 (02:00→22:57)
--- NOTE | 2019-06-13 02:07 | NUR ---
PT REFUSED MED NEB TX AT THIS TIME. SPO2 98% ON RA, HR 81. PT DENIES ANY RESPIRATORY DISTRESS. NO SHORTNESS OF BREATH NOTED. WILL CONTINUE WITH NEXT SCHEDULED TX.
[2019-06-13 05:00] VITALS: BP 128/70
--- NOTE | 2019-06-13 07:00 | NUR ---
OPENING SHIFT NOTE ASSUMED CARE OF THE PATIENT FROM THE SPINNERET CLEANER RN. THE PATIENT IS A&OX4, NO SIGNS OR SYMPTOMS OF DISTRESS. EDUCATED THE PATIENT ON POC AND PATIENT VERBALIZED UNDERSTANDING. THE PATIENT'S CALL LIGHT IS WITHIN REACH AND THE BED IS IN THE LOWEST, LOCKED POSITION. WILL ROUND HOURLY AND CONTINUE TO MONITOR.
--- NOTE | 2019-06-13 07:01 | NUR ---
closing notes endorsed care to day shift nurse, Jo.
[2019-06-13 09:00] VITALS: BP 126/75
[2019-06-13] MEDS: VENLAFAXINE HCL 37.5MG TABLET PO SCH (09:32)
[2019-06-13] MEDS: PANTOPRAZOLE 40 MG/10 ML VIAL INJ IV SCH ×2 (09:32→21:32)
[2019-06-13] MEDS: LEVOFLOXACIN 250 MG TAB PO SCH (09:32)
--- NOTE | 2019-06-13 12:42 | NUR ---
WOUND CARE NOTE: Wound care in to see patient for skin integrity monitoring. Patient has been extubated and now in [place] M/S/telemetry unit. Patient is resting in bed in Rm. 240B. Patient is awake, alert and able to verbalize needs. he has sitter at bedside for safety. Patient is ambulatory and self turn and reposition. His Markell score is 22. Patient remain wound free, no pressure injury noted. NO further wound care monitoring needed at this time. RECOMMENDATION: continue with skin/wound preventative plan of care, new wound consult in case of active wound, pressure injury, Markell score of 12 and below.
[2019-06-13 13:00] VITALS: BP 130/76
--- NOTE | 2019-06-13 13:00 | NUR ---
FAMILY AT BEDSIDE/CONTACT AND PASSWORD SET-UP
--- NOTE | 2019-06-13 15:32 | NUR ---
Discharge planning per SS consult, nurse Jo advised that patient has orders to dc to a psych facility. Advised that I will work on it on 06.14.19 as it will be difficult to locate an accepting facility on a Friday.
--- NOTE | 2019-06-13 15:35 | NUR ---
RN NURSERY NOTIFIED RN NURSERY NOTIFIED THAT AN ORDER FOR DC PLANNING TO A PSYCHIATRIC FACILITY HAS BEEN PLACED. BECAUSE IT WILL BE DIFFICULT TO FIND PLACEMENT ON A FRIDAY, THE SOFTWARE APPLICATIONS DESIGNER, [place], WILL BE WORKING ON THIS TOMORROW, 06/14/19. WILL ENDORSE TO DAY SHIFT.
[2019-06-13 15:55] VITALS: BP 135/76
--- NOTE | 2019-06-13 19:15 | NUR ---
IV removal IV to left AC DC'd with sterile technique, catheter fully intact. Pressure dressing applied to site. Patient tolerated procedure well.
[2019-06-13 22:03] VITALS: BP 128/67
[2019-06-14] MEDS: IPRATROPIUM BROM 0.5 MG/2.5ML INH SOL NEB SCH ×6 (02:11→22:00)
[2019-06-14] MEDS: ALBUTEROL SULF 2.5 MG/0.5ML(0.5%) NEB SOLN NEB SCH ×6 (02:11→22:00)
[2019-06-14] MEDS: ONDANSETRON HCL 4 MG/2 ML VIAL IV PRN (02:59)
[2019-06-14 04:48] VITALS: BP 108/41
--- NOTE | 2019-06-14 05:34 | NUR ---
Hospitalist paged Hospitalist paged due to patient complaining of cough that was coming and going. Hospitalist returned page immediately. New orders received and verified.
[2019-06-14] MEDS ORDERED: guaiFENesin-DM 100/10mg/5ml SYR PO PRN (05:45)
--- NOTE | 2019-06-14 07:30 | NUR ---
Opening Shift Note Assuming care of patient at this time. Patient is awake and alert. Patient denies pain, but does express that he has been having some anxiety. Patient shows no signs or symptoms of distress or shortness of breath. Will medicate per doctor's orders. Bed is locked and lowered with side rails up x2. Instructed patient on the plan of care for today and to call for assistance as needed. Will continue to round hourly and as needed. Call light within reach. Will continue to round hourly and as needed. Addendum: 06/14/19 at 1123 by VIVIANA BEYER RN RN Sitter at bedside for safety.
[2019-06-14 08:54] VITALS: BP 112/57
[2019-06-14] MEDS: LORazepam 2MG/ML-1ML VIAL IV PRN ×2 (10:45→18:54)
[2019-06-14] MEDS: VENLAFAXINE HCL 37.5MG TABLET PO SCH (10:45)
[2019-06-14] MEDS: PANTOPRAZOLE 40 MG/10 ML VIAL INJ IV SCH ×2 (10:45→20:33)
[2019-06-14] MEDS: LEVOFLOXACIN 250 MG TAB PO SCH (10:51)
--- NOTE | 2019-06-14 11:18 | NUR ---
Call to [place] Spoke with Hood at [facility]. Patient's Complera cannot be refilled as they are still waiting for authorization from insurance company. Hood states, "It is not covered yet." Will notify patient.
--- NOTE | 2019-06-14 11:32 | NUR ---
faxed psych packet to [facility] [phone] at 1100 hrs
--- NOTE | 2019-06-14 12:01 | NUR ---
Received packet for placement Called [facility] and left voicemail to call back call center
[2019-06-14 13:00] VITALS: BP 118/64
--- NOTE | 2019-06-14 13:45 | NUR ---
Called Estella Alvarez regarding patient's 5150. No answer. Left voicemail to call back call center
--- NOTE | 2019-06-14 15:00 | NUR ---
Re: Anti-virals Patient aware of [facility] not having authorization regarding his home medications. Patient states he, "will call and figure it out." Notified patient that he should fill prescription and have someone bring it in so that he can get back on his anti-viral medication.
[2019-06-14] MEDS: Ensure HIGH Protein Chocolate 8oz Bottle PO SCH ×2 (15:09→19:31)
--- NOTE | 2019-06-14 15:13 | NUR ---
Psych; Deirdre from [facility] Behavioral help call center called and stated she needed a signed 0300 application . 5150 application I sent is not signed and will need to be refaxed to [phone] before help center can start working on finding in pt facility
--- NOTE | 2019-06-14 15:14 | NUR ---
Received call back from Estella SHAFFER She will get fax the [phone] with signature Addendum: 06/14/19 at 1520 by ELI RIVERA [facility] She will fax the [phone] with a signature
[2019-06-14 16:52] VITALS: BP 131/63
--- NOTE | 2019-06-14 17:43 | NUR ---
Fax to Behavioral [facility] Resent the [phone] in place at this time.
--- NOTE | 2019-06-14 18:52 | NUR ---
Received 5150. Will start seeking placement
--- NOTE | 2019-06-14 19:14 | NUR ---
[facility] Aleks Pradhan s/w Dustin, no beds
--- NOTE | 2019-06-14 19:32 | NUR ---
Closing Shift Note Patient resting in bed. No distress noted. Will endorse care to the shift coordinator RN.
--- NOTE | 2019-06-14 20:00 | NUR ---
Opening Shift Note: A&Ox4, resting in bed. Room air, pain level 0/10, and ambulates independently without assistive devices. Bed locked in lowest position, side rails up x3, call light within reach, and sitter at bedside for suicide precautions. Patient is a 5150 hold; pending transfer to psych facility. Patient is s/p EGD and brochoscopy on 06/07/19. Patient was extubated on 06/09/19. Skin intact. IV left forearm 18 g IID inserted on 06/08/19. POC discussed and questions answered. Will continue to round prn.
[2019-06-14 21:30] VITALS: BP 111/51
[2019-06-15] MEDS: ALBUTEROL SULF 2.5 MG/0.5ML(0.5%) NEB SOLN NEB SCH ×6 (02:37→22:09)
[2019-06-15] MEDS: IPRATROPIUM BROM 0.5 MG/2.5ML INH SOL NEB SCH ×6 (02:37→22:09)
[2019-06-15] MEDS: LORazepam 2MG/ML-1ML VIAL IV PRN ×4 (02:39→23:37)
[2019-06-15 05:30] VITALS: BP 108/66
--- NOTE | 2019-06-15 05:43 | NUR ---
Charge nurse Arlene made aware, at this time , there are still no beds available for placement at any of the facilities.
[2019-06-15 06:44] LABS: Basophils # (auto) 0 uL; Eosinophils # (auto) 0.1 uL; Hemoglobin 13.2 g/dL (13.5-17.5); Lymphocytes # (auto) 2.5 uL; Monocytes # (auto) 0.5 uL; Neutrophils # (auto) 2.2 uL
[2019-06-15 06:48] LABS: Basophils % (auto) 0.7 % (0.0-2.0); Eosinophils % (auto) 1.7 % (0.0-7.0); Hematocrit 38.1 % (41.0-53.0); Lymphocytes % (auto) 46.9 % (10.0-50.0); Mean Corpuscular Hemoglobin 31.6 pg (28.0-32.0); Mean Corpuscular Hgb Conc. 34.6 g/dL (32.0-36.0); Mean Corpuscular Volume 91.3 fL (80.0-100.0); Neutrophils % (auto) 40.7 % (37.0-80.0); Nucleated Red Blood Cells % 0.2 %; Platelet Count (auto) 472 10^3/uL (140-450); Red Blood Cells 4.17 10^6/uL (4.5-5.90); Red Cell Distribution Width 14.3 % (11.8-14.3); White Blood Cell 5.4 10^3/uL (4.4-10.8)
[2019-06-15 07:00] LABS: BUN/Creatinine Ratio 20.5; Calcium 8.5 mg/dL (8.5-10.1); Potassium 3.9 mmol/L (3.5-5.1)
[2019-06-15] MEDS: Ensure HIGH Protein Chocolate 8oz Bottle PO SCH ×3 (07:50→17:13)
--- NOTE | 2019-06-15 08:00 | NUR ---
Opening Shift Note Assumed care of patient, awake and alert. Patient sitting up in bed watching TV. Sitter at bedside. Waiting for placement to psych facility. No S/S of distress/SOB or pain. Instructed on POC and to call for assist PRN, will continue to monitor for changes Q1hr and PRN.
[2019-06-15 08:58] VITALS: BP 110/64
[2019-06-15] MEDS ORDERED: PANTOPRAZOLE 40 MG TAB PO SCH (10:00)
[2019-06-15] MEDS: LEVOFLOXACIN 250 MG TAB PO SCH (10:25)
[2019-06-15] MEDS: VENLAFAXINE HCL 37.5MG TABLET PO SCH (10:25)
[2019-06-15] MEDS: PANTOPRAZOLE 40 MG/10 ML VIAL INJ IV SCH ×2 (10:25→23:37)
--- NOTE | 2019-06-15 11:35 | NUR ---
No open beds at the following facilities: [facility]
--- NOTE | 2019-06-15 11:36 | NUR ---
Will continue efforts in locating appropriate placement
[2019-06-15 14:00] VITALS: BP 120/70
--- NOTE | 2019-06-15 14:34 | NUR ---
Patient belongings returned Patient stated he had a bunch of belongings in ICU and thought they had been locked up in security. This nurse notified the washhouse hand who brought the belongings. They were given to a patient and a list was created of all returned items which the patient then signed. Patient was advised to send all belongings home with family for safety reasons. The list is as follows. See hard chart for signed copy. 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 ForSohalo x 1 Computer adapter Headphones Visa [employer]Ticket[employer]Event with coins [employer] debit card ending in 6936 iPhone x 2 - both with cracked screens, iPhone 10 screen smashed to bits on back and front Apple watch Airpods in charging case Charging block [employer] external hard drive and cable Headphones with [employer] laptop and cable
--- NOTE | 2019-06-15 14:54 | NUR ---
Nutrition Follow-up Notes Wt.: 53.1 kg based on bed scale as of yesterday. Pt's with sitter at bedside, watching TV, no signs of distress, when rounded this morning. Pt's currently on Regular diet with Ensure Enlive 1 carton TID, has adequate PO intake aeb 95% consumed meals (x6) in last 2.5 days. Est. Needs: 1550 kcal to 1950 kcal (20-25 kcal/kgBW), 77 gms to 93 gms pro (1.0-1.2 gms/kgBW). Will continue to monitor pertinent labs and reassess nutrient need prn Labs: Pertinent labs today wnl except for Gluc 109 H; Tpro 6.2 L, Alb 2.4 L Skin: Markell scale 22, low risk, skin intact per spear fisher. GI: Pt had 1 BM yesterday per spear fisher. PES: Resolved: Increased nutrient needs r/t acute/chronic medical condition aeb intubated,sedated. mod hypoalbuminemia,NPO. Altered nutrition related lab values r/t current/chronic medical condition aeb elev. AST, hypocalcemia and mod hypoalbuminemia Will continue to monitor PO intake, skin status, pertinent labs and weight trend. F/u in 3 to 5 days. Rec.: 1.) Continue close supervision during meals. 2.) If Albumin continues trending down, consider Prostat 1 pkt BID. 3.) Refer pt to RD for further nutrition education and weight monitoring upon discharge. 4.) Continue current plan of care.
--- NOTE | 2019-06-15 19:58 | NUR ---
Opening Shift Note Received report and assumed care of patient. Patient is awake, alert and resting comfortably in bed. No signs or symptoms of distress noted, denies pain. Sitter at bedside. Instructed patient on plan of care and to call for assistance as needed. Will continue to monitor.
--- NOTE | 2019-06-15 20:31 | NUR ---
Patient still needing placement for psych. Called the following facilities: [facility] s/w Mya still no beds [facility] s/w Laila still no beds [facility]w [facility] no beds [facility] s/w Liset no beds but they still have packet [facility] s/w [place], at capacity
[2019-06-15 22:00] VITALS: BP 115/72
--- NOTE | 2019-06-15 23:40 | NUR ---
IV Removal/Insertion IV to the left forearm leaking. Discontinued with clean sterile technique, catheter tip intact. Pressure dressing applied to site. NOTE:Inserted 22g IV to the Right hand. Patient tolerated well.
[2019-06-16] MEDS: ALBUTEROL SULF 2.5 MG/0.5ML(0.5%) NEB SOLN NEB SCH ×6 (02:30→22:08)
[2019-06-16] MEDS: IPRATROPIUM BROM 0.5 MG/2.5ML INH SOL NEB SCH ×6 (02:30→22:08)
[2019-06-16 05:00] VITALS: BP 124/68
[2019-06-16] MEDS: LORazepam 2MG/ML-1ML VIAL IV PRN ×3 (06:26→18:42)
--- NOTE | 2019-06-16 07:30 | NUR ---
Open Shift Note Received report on patient, awake and sitting up in bed. Patient states feeling diaphoretic and slightly dizzy. Patient's BP 65/33 HR 67 Temp 97.8 O2 saturation 100 on room air. Charge nurse aware and at bedside. Hospitalist paged.
--- NOTE | 2019-06-16 07:55 | NUR ---
LOW BLOOD PRESSURE EPISODE: Was called urgently by CONSUMER LOAN SPECIALIST that the patient needed assistance in the bathroom. Upon arrival, the patient was kneeling on the floor, profusely sweating. Patient was still alert and oriented but stated he felt very dizzy, there was pain in his abdomen, and that he felt sweaty. Blood sugar was 74. Patient was escorted back to bed with staff assistance. Blood pressure was 65/33 in right arm; HR was 67, and pain level was 7/10 in abdomen. Charge nurse called for assistance. Dr. Shaikh vigil as training and development professional hospitalist. 0805: BP 87/41 MAP 58; HR 76, O2 100 % on RA; RR 18; pain level 5/10. 0810: BP 95/44 MAP 67, HR 77, 100% on RA RR 18 0823: IVF running at 1000 ml/hr. Awaiting page return from training and development professional hospitalist for further orders. Melanie day nurse aware of current situation. Patient is still oriented x4 and resting in bed.
[2019-06-16] MEDS: Ensure HIGH Protein Chocolate 8oz Bottle PO SCH ×3 (08:00→18:00)
--- NOTE | 2019-06-16 08:26 | NUR ---
BP 106/57
[2019-06-16 09:00] VITALS: BP 100/51
--- NOTE | 2019-06-16 09:44 | NUR ---
Transfer called primary RN to get a renewed 5150 and fax to me so I can fax to call help center
[2019-06-16] MEDS: ONDANSETRON HCL 4 MG/2 ML VIAL IV PRN (09:58)
[2019-06-16] MEDS: LEVOFLOXACIN 250 MG TAB PO SCH (10:02)
[2019-06-16] MEDS: VENLAFAXINE HCL 37.5MG TABLET PO SCH (10:03)
[2019-06-16] MEDS: PANTOPRAZOLE 40 MG/10 ML VIAL INJ IV SCH (10:07)
--- NOTE | 2019-06-16 10:45 | NUR ---
Respiratory note: PT REFUSED SCHEDULED MED NEB TX, NO TX DESIRED HE WOULD LIKE TO SLEEP. NO DISTRESS NOTED, DENIES SOB. HR 76 RR 14 SPO2 99% ON RA. PT AND RN AWARE TO HAVE RT PAGED IF NEEDED.
[2019-06-16 12:26] LABS: Eosinophils # (auto) 0.1 uL; Lymphocytes # (auto) 2.5 uL; Neutrophils # (auto) 4.3 uL; Nucleated Red Blood Cells % 0.1 %; White Blood Cell 7.4 10^3/uL (4.4-10.8)
[2019-06-16 12:29] LABS: Basophils # (auto) 0.1 uL; Basophils % (auto) 0.8 % (0.0-2.0); Eosinophils % (auto) 1.3 % (0.0-7.0); Hematocrit 40.3 % (41.0-53.0); Hemoglobin 13.5 g/dL (13.5-17.5); Lymphocytes % (auto) 33.8 % (10.0-50.0); Mean Corpuscular Hemoglobin 30.8 pg (28.0-32.0); Mean Corpuscular Hgb Conc. 33.5 g/dL (32.0-36.0); Monocytes # (auto) 0.5 uL; Monocytes % (auto) 6.2 % (0.0-12.0); Neutrophils % (auto) 57.9 % (37.0-80.0); Platelet Count (auto) 469 10^3/uL (140-450); Red Blood Cells 4.39 10^6/uL (4.5-5.90); Red Cell Distribution Width 14.5 % (11.8-14.3)
[2019-06-16] MEDS: SUCRALFATE 1 GM TAB PO SCH ×3 (12:30→21:52)
[2019-06-16 12:36] LABS: Amylase 80 U/L (25-115); Lipase 353 U/L (73-393)
[2019-06-16 13:00] VITALS: BP 104/58
--- NOTE | 2019-06-16 14:48 | NUR ---
Spoke with Gas Turbine Powerplant Mechanic Helper, Estella, regarding medical clearance and updated 5150. Per Estella, she will update the call center regarding both and if and when we can proceed with psych placement.
--- NOTE | 2019-06-16 15:00 | NUR ---
MD will need to write order stating pt is medically cleared to go to in pt psych facility and a updated 5120 application completed
[2019-06-16 17:00] VITALS: BP 108/59
--- NOTE | 2019-06-16 19:19 | NUR ---
End of Shift Patient sitting up in bed, shows no signs of distress at this time. Bed in lowest locked position, side rails up x2 and call light within reach. Sitter present at bedside.
--- NOTE | 2019-06-16 20:00 | NUR ---
open note assumed care of pt. upon entering room pt awake, alert and oriented x4. pt on room air no distress noted or expressed. pt has sitter at bedside. pt denies any pain. pt updated on plan of care. no questions at this time. pt reports if he wasnt here "id probably still try to do something", answering question of whether pt still felt suicidal. pt bed locked, low and 2x rails up. pt call light in reach, this nurse will round q1hr and prn.
[2019-06-16] MEDS: PANTOPRAZOLE 40 MG TAB PO SCH (21:52)
[2019-06-16 22:00] VITALS: BP 122/74
[2019-06-17] MEDS: LORazepam 2MG/ML-1ML VIAL IV PRN ×4 (00:52→20:00)
[2019-06-17] MEDS: IPRATROPIUM BROM 0.5 MG/2.5ML INH SOL NEB SCH ×5 (02:26→22:21)
[2019-06-17] MEDS: ALBUTEROL SULF 2.5 MG/0.5ML(0.5%) NEB SOLN NEB SCH ×5 (02:26→22:21)
[2019-06-17 04:31] VITALS: BP 123/67
[2019-06-17 06:27] LABS: Basophils # (auto) 0.1 uL; Basophils % (auto) 0.8 % (0.0-2.0); Eosinophils # (auto) 0.2 uL; Eosinophils % (auto) 2.4 % (0.0-7.0); Hematocrit 38.5 % (41.0-53.0); Hemoglobin 12.9 g/dL (13.5-17.5); Lymphocytes # (auto) 2.8 uL; Lymphocytes % (auto) 39.5 % (10.0-50.0); Mean Corpuscular Hemoglobin 30.8 pg (28.0-32.0); Mean Corpuscular Hgb Conc. 33.5 g/dL (32.0-36.0); Mean Corpuscular Volume 91.8 fL (80.0-100.0); Monocytes # (auto) 0.5 uL; Monocytes % (auto) 6.9 % (0.0-12.0); Neutrophils # (auto) 3.6 uL; Neutrophils % (auto) 50.4 % (37.0-80.0); Nucleated Red Blood Cells % 0.1 %; Platelet Count (auto) 421 10^3/uL (140-450); Red Blood Cells 4.19 10^6/uL (4.5-5.90); Red Cell Distribution Width 14.7 % (11.8-14.3); White Blood Cell 7.1 10^3/uL (4.4-10.8)
[2019-06-17 06:38] LABS: Calcium 8.8 mg/dL (8.5-10.1); Potassium 3.9 mmol/L (3.5-5.1)
[2019-06-17] MEDS: SUCRALFATE 1 GM TAB PO SCH ×4 (06:51→22:02)
--- NOTE | 2019-06-17 07:30 | NUR ---
Open Shift Note Received report on patient, lying in bed and shows no signs of distress at this time. Patient states feeling better than yesterday, no longer feels dizzy. Discussed POC with patient. Bed in lowest locked position, side rails up x2 and call light within reach. Sitter present at bedside. Will continue to monitor.
[2019-06-17] MEDS: Ensure HIGH Protein Chocolate 8oz Bottle PO SCH ×3 (08:00→18:00)
[2019-06-17 09:00] VITALS: BP 108/61
[2019-06-17] MEDS: PANTOPRAZOLE 40 MG TAB PO SCH ×2 (11:24→22:02)
[2019-06-17] MEDS: VENLAFAXINE HCL 37.5MG TABLET PO SCH ×2 (11:24→22:02)
[2019-06-17 13:00] VITALS: BP 123/64
--- NOTE | 2019-06-17 14:35 | NUR ---
HIV Med Given Patient's brother brought in HIV medication from patient's pharmacy. Medication taken down to pharmacy, one dose given today. Pharmacy aware.
--- NOTE | 2019-06-17 15:03 | NUR ---
ss would like for pt to get another tele psych evaluation since there are new information to this pt's case. Kiana SSto reassess pt talk with pt's brother
--- NOTE | 2019-06-17 15:07 | NUR ---
Pagezoraida Love Paged Dr Love to inform him of patient's tele psych re-evaluation med recommendation. Awaiting call back for new orders.
[2019-06-17 17:00] VITALS: BP 124/58
--- NOTE | 2019-06-17 18:48 | NUR ---
Closing Note Patient sitting up in bed and eating dinner, shows no signs of distress at this time. Bed in lowest locked position, side rails up x2 and call light within reach. Sitter present at bedside.
--- NOTE | 2019-06-17 19:55 | NUR ---
open note assumed care of pt from day nurse Melanie. upon entering room pt awake, alert and oriented x4. pt has sitter at bedside. pt on room air with no distress noted or expressed. pt denies any pain. pt updated on plan of care, no questions at this time. pt bed locked, low and 2x rails up. pt call light in reach, encouraged to call as needed. this nurse will round q1hr and prn.
[2019-06-17 22:00] VITALS: BP 108/60
[2019-06-18] MEDS: LORazepam 2MG/ML-1ML VIAL IV PRN ×4 (02:20→20:54)
--- NOTE | 2019-06-18 02:25 | NUR ---
5150 completed by powerhouse attendant Bonny SABILLON.
[2019-06-18] MEDS: IPRATROPIUM BROM 0.5 MG/2.5ML INH SOL NEB SCH ×6 (02:35→22:15)
[2019-06-18] MEDS: ALBUTEROL SULF 2.5 MG/0.5ML(0.5%) NEB SOLN NEB SCH ×6 (02:36→22:15)
[2019-06-18 05:00] VITALS: BP 109/75
--- NOTE | 2019-06-18 06:09 | NUR ---
RT NOTE: WENT TO PTS ROOM TO ADMINISTER BREATHING TX, PT STATED THAT HE DID NOT WANT HIS TX AT THIS TIME. HR 83, RR 16, SPO2 100% ON RA. NO S/S OF SOB. WILL CONTINUE TO MONITOR PT.
[2019-06-18] MEDS: SUCRALFATE 1 GM TAB PO SCH ×4 (06:30→21:43)
--- NOTE | 2019-06-18 06:30 | NUR ---
pt requests that he he be placed back on previous medication abilify 10mg qd. will endorse to day shift RN.
--- NOTE | 2019-06-18 06:52 | NUR ---
Received report from clinical trial associate. [facility] still looking for placment.
--- NOTE | 2019-06-18 08:08 | NUR ---
OPENING SHIFT NOTE: PATIENT RESTING IN BED, AWAKE SITTING AT EDGE OF BED. PATIENT SMILING AND LAUGHING WITH SITTER AT BEDSIDE, AND APPEARS TO BE IN A GOOD MOOD. RESPIRATIONS EVEN AND UNLABORED. NO C/O PAIN ONLY REQUEST ANXIETY MEDICATION WHEN IT IS DUE. CALL LIGHT PLACED WITHIN REACH, FLOORS FREE OF CLUTTER. UPDATED PATIENT ON PLAN OF CARE. WILL CONTINUE TO MONITOR.
--- NOTE | 2019-06-18 08:35 | NUR ---
Received a call from Art at [facility] regarding new 5150 hold. He requested the new hold be sent so that they can continue to look for in-patient psych facility placement. Paperwork faxed as requested.
[2019-06-18] MEDS: EMTRICITABINE PO SCH (08:39)
[2019-06-18] MEDS: TENOFOVIR DISOPROXIL FUMARATE 300 MG PO SCH (08:39)
[2019-06-18] MEDS: RILPIVIRINE 25 MG PO SCH (08:39)
[2019-06-18] MEDS: VENLAFAXINE HCL 37.5MG TABLET PO SCH ×2 (08:40→21:44)
[2019-06-18] MEDS: PANTOPRAZOLE 40 MG TAB PO SCH ×2 (08:40→21:43)
[2019-06-18] MEDS: Ensure HIGH Protein Chocolate 8oz Bottle PO SCH (08:41)
[2019-06-18 08:51] VITALS: BP 127/70
--- NOTE | 2019-06-18 09:07 | NUR ---
Received updated 5150 from [facility]. Will continue to look for placement.
--- NOTE | 2019-06-18 09:10 | NUR ---
Followed up with melissa Prakash/[facility]. Still no beds available at this time.
--- NOTE | 2019-06-18 09:31 | NUR ---
Packet faxed to Michelle at [facility] for review.
[2019-06-18 09:32] VITALS: BP 127/70
--- NOTE | 2019-06-18 09:42 | NUR ---
Called [facility] s/w Anita. No beds.
--- NOTE | 2019-06-18 09:43 | NUR ---
Called [facility]. No beds.
--- NOTE | 2019-06-18 09:47 | NUR ---
Called [facility], s/w Cat. No beds.
--- NOTE | 2019-06-18 09:49 | NUR ---
Called [facility] x2. Was transferred to House SUP. No answer. Will follow up.
--- NOTE | 2019-06-18 10:00 | NUR ---
RT NOTE: WENT TO PTS ROOM TO ADMINISTER BREATHING TX, PT STATED THAT HE DID NOT WANT HIS TX AT THIS TIME. HR 89, RR 16, SPO2 98% ON RA. NO S/S OF SOB. WILL CONTINUE TO MONITOR PT.
--- NOTE | 2019-06-18 11:12 | NUR ---
FAMILY AT BEDSIDE.
--- NOTE | 2019-06-18 12:45 | NUR ---
Nutrition Follow-up Notes Wt.: 62.8 kg Pt's with sitter at bedside, watching TV, no signs of distress, when rounded this morning. Pt's currently on Regular diet with adequate PO of > 75% x 2 days per RN doc Est. Needs: 1550 kcal to 1950 kcal (20-25 kcal/kgBW), 77 gms to 93 gms pro (1.0-1.2 gms/kgBW). Will continue to monitor pertinent labs and reassess nutrient need prn Labs: GLU 111 H. rest lab wnl for today Skin: Markell scale 22, low risk, skin intact per closet builder. GI: Pt had 1 BM today per closet builder. PES: Resolved: Increased nutrient needs r/t acute/chronic medical condition aeb intubated,sedated. mod hypoalbuminemia,NPO. Altered nutrition related lab values r/t current/chronic medical condition aeb elev. AST, hypocalcemia and mod hypoalbuminemia Will continue to monitor PO intake, skin status, pertinent labs and weight trend. F/u in 3 to 5 days. Rec.: 1.) Continue close supervision during meals. 2.) If Albumin continues trending down, consider Prostat 1 pkt BID. 3.) Refer pt to RD for further nutrition education and weight monitoring upon discharge. 4.) Continue current plan of care.
[2019-06-18 13:00] VITALS: BP 124/76
--- NOTE | 2019-06-18 15:04 | NUR ---
re-assessment Patient has been on his medications and now is answering appropriately. Patient is a 28 year old male who is now alert and oriented. Patient informed me that prior to admission he lived home with family and was independent. Patient informed me he was living in [place] and received his PHD. Patient came back to the [place] and fell off his medication regimen and started to decline mentally. Patient informed me he was at a Eric and was taking medication to end his life. When I asked patient if he still feels suicidal he replied that he is still not 100%, but does feel better now that he is on most of his medications. Patient informed me he still needs to be put back on Abilify. Patient informed me that he has good family support. Patient still feels he needs help. Patients 51/50 has been renewed. I will re-assess next week. Addendum: 06/18/19 at 1511 by Kiana ANTHONY Amended: Links added.
[2019-06-18 16:12] VITALS: BP 128/76
--- NOTE | 2019-06-18 18:41 | NUR ---
CLOSING SHIFT NOTE: PATIENT RESTING IN BED. ADDRESSED ALL CONCERNS, SITTER AT BEDSIDE. NO C/O PAIN, EDUCATED NEXT DUE ANXIETY MED, PATIENT VERBALIZED UNDERSTANDING. FAMILY BROUGHT IN CANDY AND COOKIES TO BEDSIDE. EDUCATED PATIENT ON HEALTHY EATING HABITS, REINFORCEMENT NEEDED. WILL ENDORSE CARE TO NOC RN.
--- NOTE | 2019-06-18 19:09 | NUR ---
CARE ENDORSED TO NARCISO SABILLON.
[2019-06-18 21:45] VITALS: BP 118/58
--- NOTE | 2019-06-18 22:04 | NUR ---
[facility].
[2019-06-18] MEDS ORDERED: TEMAZEPAM 15 MG CAP PO ONE (22:15)
[2019-06-19] MEDS: IPRATROPIUM BROM 0.5 MG/2.5ML INH SOL NEB SCH ×3 (02:00→22:05)
[2019-06-19] MEDS: ALBUTEROL SULF 2.5 MG/0.5ML(0.5%) NEB SOLN NEB SCH ×3 (02:00→22:05)
--- NOTE | 2019-06-19 02:01 | NUR ---
PT REFUSED MN TX. NO SOB NOTED.
[2019-06-19 05:32] VITALS: BP 118/63
[2019-06-19] MEDS: SUCRALFATE 1 GM TAB PO SCH ×4 (06:26→21:42)
[2019-06-19] MEDS: LORazepam 2MG/ML-1ML VIAL IV PRN ×3 (06:27→19:19)
--- NOTE | 2019-06-19 07:30 | NUR ---
Opening Shift Note Assumed care of patient, awake, alert, and oriented x4. Sitter is at bedside for 24 hour care and monitoring. No S/S of distress/SOB or pain. IV is in right wrist 22 gauge, asymptomatic, intact, patent, and saline locked. Bed is locked and in lowest position and call light is within reach. Instructed on POC and to call for assist PRN, and patient verbalized understanding. Will continue to monitor for changes Q1hr and PRN.
[2019-06-19] MEDS: VENLAFAXINE HCL 37.5MG TABLET PO SCH ×2 (09:07→21:41)
[2019-06-19] MEDS: RILPIVIRINE 25 MG PO SCH (09:08)
[2019-06-19] MEDS: EMTRICITABINE PO SCH (09:08)
[2019-06-19] MEDS: PANTOPRAZOLE 40 MG TAB PO SCH ×2 (09:08→21:41)
[2019-06-19] MEDS: TENOFOVIR DISOPROXIL FUMARATE 300 MG PO SCH (09:08)
--- NOTE | 2019-06-19 10:00 | NUR ---
Dr. Pollack, Hospitalist, at bedside; new orders received.
[2019-06-19 13:00] VITALS: BP 121/61
--- NOTE | 2019-06-19 14:08 | NUR ---
Called in new prescription to patient requested pharmacy.
[2019-06-19] MEDS ORDERED: ARIP1TAB7 PO (18:09)
--- NOTE | 2019-06-19 18:38 | NUR ---
Took home medication, Abilify, down to in-patient pharmacy.
[2019-06-19 20:55] VITALS: BP 126/70
[2019-06-19] MEDS: TEMAZEPAM 15 MG CAP PO PRN (22:27)
[2019-06-20] MEDS: IPRATROPIUM BROM 0.5 MG/2.5ML INH SOL NEB SCH ×6 (02:00→22:33)
[2019-06-20] MEDS: ALBUTEROL SULF 2.5 MG/0.5ML(0.5%) NEB SOLN NEB SCH ×6 (02:00→22:33)
--- NOTE | 2019-06-20 02:00 | NUR ---
PT REFUSED MED NEB.
[2019-06-20 04:44] VITALS: BP 105/56
[2019-06-20 05:35] LABS: Basophils # (auto) 0 uL; Basophils % (auto) 0.4 % (0.0-2.0); Eosinophils # (auto) 0.2 uL; Eosinophils % (auto) 2.5 % (0.0-7.0); Hematocrit 38.7 % (41.0-53.0); Hemoglobin 13.2 g/dL (13.5-17.5); Lymphocytes # (auto) 3.1 uL; Lymphocytes % (auto) 45.9 % (10.0-50.0); Mean Corpuscular Hemoglobin 31.3 pg (28.0-32.0); Mean Corpuscular Volume 92.2 fL (80.0-100.0); Monocytes # (auto) 0.6 uL; Monocytes % (auto) 8.3 % (0.0-12.0); Neutrophils # (auto) 2.9 uL; Neutrophils % (auto) 42.9 % (37.0-80.0); Nucleated Red Blood Cells % 0.1 %; Platelet Count (auto) 429 10^3/uL (140-450); White Blood Cell 6.7 10^3/uL (4.4-10.8)
[2019-06-20 05:59] LABS: Calcium 8.2 mg/dL (8.5-10.1); Potassium 3.9 mmol/L (3.5-5.1)
[2019-06-20 06:08] LABS: BUN/Creatinine Ratio 13.7
[2019-06-20] MEDS: SUCRALFATE 1 GM TAB PO SCH ×4 (06:32→21:50)
[2019-06-20] MEDS: LORazepam 2MG/ML-1ML VIAL IV PRN ×3 (06:33→18:45)
[2019-06-20 09:54] VITALS: BP 99/51
[2019-06-20] MEDS: VENLAFAXINE HCL 37.5MG TABLET PO SCH ×2 (09:58→21:50)
[2019-06-20] MEDS: RILPIVIRINE 25 MG PO SCH (09:59)
[2019-06-20] MEDS: EMTRICITABINE PO SCH (09:59)
[2019-06-20] MEDS: TENOFOVIR DISOPROXIL FUMARATE 300 MG PO SCH (09:59)
[2019-06-20] MEDS: PANTOPRAZOLE 40 MG TAB PO SCH ×2 (10:00→21:50)
[2019-06-20] MEDS: ARIPIPRAZOLE 10 MG PO SCH (11:21)
--- NOTE | 2019-06-20 12:00 | NUR ---
Dr. Pollack, Hospitalist, at bedside.
[2019-06-20 16:05] VITALS: BP 99/51
[2019-06-20] MEDS: TEMAZEPAM 15 MG CAP PO PRN (21:52)
[2019-06-20 22:04] VITALS: BP 117/60
--- NOTE | 2019-06-20 22:34 | NUR ---
Respiratory note: PT REFUSE MED NEB AT THIS TIME, PT ALSO REFUSING HIS NEXT SCHEDULED MED NEB AT 0200 AT THIS TIME. SITTER AT BEDSIDE
[2019-06-21 05:12] VITALS: BP 127/72
[2019-06-21] MEDS: SUCRALFATE 1 GM TAB PO SCH ×4 (06:07→22:08)
[2019-06-21] MEDS: LORazepam 2MG/ML-1ML VIAL IV PRN (06:10)
--- NOTE | 2019-06-21 06:45 | NUR ---
IV removal IV DC'd Right Hand with clean sterile technique, catheter fully intact. Pressure dressing applied to site. Patient tolerated well.
--- NOTE | 2019-06-21 06:50 | NUR ---
IV insertion IV access obtained, via clean sterile technique by inserting 20 gauge catheter at Left FA after 1 attempt. IV secured properly. No trauma to site. Patient tolerated well.
--- NOTE | 2019-06-21 07:20 | NUR ---
Opening Shift Note Assumed care of patient, awake, alert, and oriented x4. Sitter is at bedside for 24 hour care and monitoring. Patient is currently showing no signs of respiratory distress. IV is in the left forearm 20G, asymptomatic, intact, patent, and saline locked. Bed is locked and in lowest position and call light is within reach. Instructed on POC and to call for assist PRN, and patient verbalized understanding. Will continue to monitor for changes Q1hr and PRN. Signed: 06/21/19 at 1349 by LUCI CARDONA <Co-Signature Required> Co-Signed: 06/21/19 at 1349 by JASON BARRETT RN RN
[2019-06-21] MEDS: IPRATROPIUM BROM 0.5 MG/2.5ML INH SOL NEB SCH ×5 (07:25→23:00)
[2019-06-21] MEDS: ALBUTEROL SULF 2.5 MG/0.5ML(0.5%) NEB SOLN NEB SCH ×5 (07:25→23:00)
--- NOTE | 2019-06-21 08:17 | NUR ---
Received call from Dee, at the behavior health call center, requesting psych hold renewal. Will fax to [phone].
[2019-06-21 09:00] VITALS: BP 136/75
--- NOTE | 2019-06-21 09:22 | NUR ---
Received from Kierra new updated notes along with hold renewal. Intake update was fax[facility] out to the following facilities. [facility] "No beds at this time will keep for wait list." [facility]/ Juan Carlos... "we are full but expecting discharges." [facility] / Marisol... "No beds but expecting discharges will alert us if anything comes up." [facility]/ Rubina..."Thank you for the information we will let you know if anything comes up." [facility]/ Jackie... "Sorry we only takes holds written by PD." [facility]/ Nga... "Thank you I will let my nurses know." [facility]/ Anastacia... "Thank you we will be reviewing intake information shortly." [facility]/ [facility]... "Will hold for reviewing and let you know if anything comes up after discharges today." [facility]/ Becca... "No beds at this time but thank you for the information." [facility]/ Rupa... "Thank you Dee, I will review the information."
[2019-06-21] MEDS: PANTOPRAZOLE 40 MG TAB PO SCH ×2 (09:25→22:08)
[2019-06-21] MEDS: VENLAFAXINE HCL 37.5MG TABLET PO SCH ×2 (09:25→22:08)
[2019-06-21] MEDS: ARIPIPRAZOLE 10 MG PO SCH (09:26)
[2019-06-21] MEDS: EMTRICITABINE PO SCH (09:27)
[2019-06-21] MEDS: TENOFOVIR DISOPROXIL FUMARATE 300 MG PO SCH (09:27)
[2019-06-21] MEDS: RILPIVIRINE 25 MG PO SCH (09:27)
[2019-06-21] MEDS ORDERED: LORazepam 0.5 MG TAB PO PRN (11:15)
--- NOTE | 2019-06-21 12:32 | NUR ---
Kiana Evans, with [employer], at bedside to group home counselor patient.
--- NOTE | 2019-06-21 12:32 | NUR ---
Dr. Love, Hospitalist, at bedside; new orders received.
[2019-06-21 13:05] VITALS: BP 123/76
--- NOTE | 2019-06-21 16:16 | NUR ---
Received call from Rupa, at [facility], that a bed has become available for patient. Paged Kiana in [employer]; awaiting reply for transport info. Rupa phone number [phone]
--- NOTE | 2019-06-21 16:20 | NUR ---
Paged Dr. Love, Hospitalist, for transport signatures; awaiting reply.
--- NOTE | 2019-06-21 16:26 | NUR ---
Transfer: [facility] is on will call. When pt ready to be transferred, call [facility] [phone] with accepting MD and rm # at accepting facility
[2019-06-21 16:37] VITALS: BP 136/75
[2019-06-21 16:43] VITALS: BP 122/71
--- NOTE | 2019-06-21 17:25 | NUR ---
IV removal IV DC'd with clean sterile technique, catheter fully intact. Pressure dressing applied to site. Patient tolerated well.
--- NOTE | 2019-06-21 17:50 | NUR ---
Transport set up for 2100 to [facility], with accepting Dr. eLn Greenberg, to the East Unit-Room 12A; receiving chargemaster specialist name is Yvette, and report should be called into [phone] ext. [phone]. The [facility] coordinators name is Rupa, and her phone number is [phone].
[2019-06-21] MEDS: ONDANSETRON HCL 4 MG/2 ML VIAL IV PRN (19:41)
[2019-06-21 21:33] VITALS: BP 119/73
--- NOTE | 2019-06-21 23:00 | NUR ---
Respiratory note: PT SEEN FOR SCHEDULED MED NEB TX AT 2300, PT REFUSED AT THIS TIME. PT STATED THAT HE IS FEELING NAUSEOUS AND WOULD LIKE TO SKIP IT FOR THE NIGHT. NO RESPIRATORY DISTRESS NOTED. SP02 99% ON ROOM AIR.
--- NOTE | 2019-06-21 23:27 | NUR ---
PATIENT IS PICKED UP AT 2330 FOR DISCHARGE TO [facility] ([facility]). REPORT GIVEN TO TRANSPORTER, PATIENT IS A&O X4, DC PAPERS AND HOME MEDICATIONS HANDED TO TRANSPORTER AND INSTRUCTED TO HAND IT OVER TO RECEIVING RN. WILL CALL REPORT TO [facility] EAST UNIT ROOM 12A.
--- NOTE | 2019-06-21 23:37 | NUR ---
REPORT GIVEN TO RIDGE VIDALES OF [facility].
== END 2019-06-21 23:36 | DRG 817 ==
LOC: EDBD 00:44 → ER 00:46 → OVERFLOW 00:47 → ICU WEST 06-07 19:45 → TELE-EAST 06-09 20:15 → EAST 06-12 20:09
PROVIDERS: ADMIT Nurse Practitioner Family; ATTEND Internal Medicine
PROC: 5A1945Z Respiratory Ventilation, 24-96 Consecutive Hours (ICD-10-PCS; principal; 2019-06-06)
PROC: 0BH17EZ Insertion of Endotracheal Airway into Trachea, Via Natural or Artificial Opening (ICD-10-PCS; 2019-06-06)
PROC: 0D9670Z Drainage of Stomach with Drainage Device, Via Natural or Artificial Opening (ICD-10-PCS; 2019-06-06)
PROC: 02HV33Z Insertion of Infusion Device into Superior Vena Cava, Percutaneous Approach (ICD-10-PCS; 2019-06-06)
PROC: 0DJ08ZZ Inspection of Upper Intestinal Tract, Via Natural or Artificial Opening Endoscopic (ICD-10-PCS; 2019-06-07)
PROC: 0B9F8ZZ Drainage of Right Lower Lung Lobe, Via Natural or Artificial Opening Endoscopic (ICD-10-PCS; 2019-06-07)
PROC: 0BD18ZX Extraction of Trachea, Via Natural or Artificial Opening Endoscopic, Diagnostic (ICD-10-PCS; 2019-06-07)
DX: T43.622A Poisoning by amphetamines, intentional self-harm, initial encounter (principal); J96.00 Acute respiratory failure, unspecified whether with hypoxia or hypercapnia; J69.0 Pneumonitis due to inhalation of food and vomit; G92 Toxic encephalopathy; A41.9 Sepsis, unspecified organism; J15.211 Pneumonia due to Methicillin susceptible Staphylococcus aureus; E44.0 Moderate protein-calorie malnutrition; K25.4 Chronic or unspecified gastric ulcer with hemorrhage; F32.2 Major depressive disorder, single episode, severe without psychotic features; F90.9 Attention-deficit hyperactivity disorder, unspecified type; E11.9 Type 2 diabetes mellitus without complications; F15.10 Other stimulant abuse, uncomplicated; E88.09 Other disorders of plasma-protein metabolism, not elsewhere classified; E87.6 Hypokalemia; Z68.24 Body mass index [BMI] 24.0-24.9, adult; Z91.19 Patient's noncompliance with other medical treatment and regimen; Z91.410 Personal history of adult physical and sexual abuse; Y92.89 Other specified places as the place of occurrence of the external cause
CPT/HCPCS: 31622; 36415; 36600; 43235; 51702; 70450; 71045; 71250; 80048; 80053; 80076; 80202; 80307; 80320; 80329; 81001; 82140; 82150; 82805; 82962; 83036; 83690; 83735; 84132; 84443; 85014; 85018; 85025; 85610; 85730; 86360; 86701; 86703; 87040; 87070; 87077; 87081; 87086; 87186; 87205; 93005; 94002; 94003; 94640; C9113; G0378; J0171; J0330; J2250; J2405; J2543; J2704; J3480; J3490; J7060